=== PATIENT | female | born 1950 | race Caucasian/White ===

== ENCOUNTER 2016-09-27 16:02 | Observation (INO) ==
[2016-09-27 18:23] LABS: Basophils # 0.1 K/mcL (0.0-0.2); Basophils % 0.8 %; Eosinophils # 0.2 K/mcL (0.0-0.6); Eosinophils % 3.1 %; Hemoglobin 14.5 g/dL (11.5-15.4); Immature Granulocytes % 0.5 % (0-4); Immature Platelets 1.8 % (1.1-6.1); Lymphocytes # 2.3 K/mcL (0.6-4.6); Lymphocytes % 30.6 %; Mean Corpuscular HGB Conc 32.2 g/dL (31.6-35.5); Mean Corpuscular Hemoglobin 30.3 pg (28.0-33.3); Mean Corpuscular Volume 94.1 fL (83.0-100.0); Mean Platelet Volume 8.8 fL (9.4-12.4); Monocytes # 0.7 K/mcL (0.0-1.3); Monocytes % 9.5 %; Neutrophils # 4.1 K/mcL (1.6-8.9); Platelet Count 248 K/mcL (140-400); Red Blood Count 4.78 M/mcL (3.82-4.97); Red Cell Distribution Width 12.7 % (11.5-14.5); Segmented Neutrophils % 55.5 %
[2016-09-27 18:37] LABS: Alanine Aminotransferase 29 Units/L (0-55); Albumin 3.9 g/dL (3.5-5.0); Albumin/Globulin Ratio 1.1 (1.1-2.2); Alkaline Phosphatase 89 Units/L (38-126); Aspartate Amino Transferase 24 Units/L (5-34); BUN/Creatinine Ratio 15 (6-26); Bilirubin,Total 0.1 mg/dL (0.2-1.2); Blood Urea Nitrogen 13 mg/dL (7-20); Calcium 9.8 mg/dL (8.6-10.8); Carbon Dioxide 29 mEq/L (19-29); Chloride 102 mEq/L (98-109); Globulin 3.4 g/dL (2.4-3.5); Glucose 103 mg/dL (70-99); Osmolality,Calculated 286 (280-300); Potassium 4.2 mEq/L (3.5-4.5); Sodium 138 mEq/L (136-145); Total Protein 7.3 g/dL (6.0-8.3); eGFR For African Americans > 60 (> 60); eGFR For Non-African Americans > 60 (> 60)
[2016-09-27] MEDS ORDERED: Ipratropium/Albuterol Neb 3 ML IH ONE (18:48)
--- NOTE | 2016-09-27 18:59 | Emergency Department Note ---
Disposition Clinical Impression: Acute exacerbation of chronic obstructive airways disease Chest pain Qualifiers: Chest pain type: unspecified Qualified Code(s): R07.9 - Chest pain, unspecified Disposition: Admitted As Inpatient Condition: Good Time of Disposition: 21:56 SOB HPI - General Chief Complaint: ED Chest Pain Stated Complaint: FELICITY. Cough, CP Time Seen by Provider: 09/27/16 18:15 Source: patient Mode of arrival: ambulatory Limitations: no limitations Nursing Notes Reviewed: Yes Vital Signs Reviewed: Yes - History of Present Illness Patient is 65-year-old female who presents to ED with 1 week of shortness of breath that is progressively gotten worse. She states that she has used her nebulizer Proair and Simbicort with minimal relief. Patient states that she also has some pain between her shoulder blades she states that this began yesterday and is intermittent. She describes this pain as tearing and coughing seems to make it worse and is better when she is sitting down.. It radiates to the front. Patient states that she has had similar symptoms a few months ago for which she was admitted to the hospital and treated for bronchitis. She states that she has had a cough during this time as well that is nonproductive. She states that she feels that she has a bunch of mucus that is in her upper chest but cannot bring it up. Pt Subjective Complaint: shortness of breath Onset (ago): day(s) Severity: moderate Consistency/Duration: intermittent - Related Data Home Medications Medication Instructions Recorded Confirmed Aspirin [Adult Low Dose Aspirin EC] 81 mg PO DAILY 05/27/15 05/27/15 Clobetasol Propionate 0.05% 0.05 applic SQ DAILY 05/27/15 05/27/15 [Temovate] Clobetasol Propionate [Clobex] 118 ml TP DAILY PRN 05/27/15 05/27/15 Estrogens, Conjugated [Premarin] 0.625 mg VG 2XW 05/27/15 05/27/15 Metoprolol [Lopressor] 25 mg PO BID 05/27/15 05/27/15 Nitroglycerin [Nitrostat] 0.4 mg SL Q2-5MIN PRN 05/27/15 05/27/15 OxyCODONE/APAP 10/325 [Percocet 1 each PO Q8HR PRN 05/27/15 05/27/15 10/325 MG] Simvastatin [Zocor] 20 mg PO HS 05/27/15 05/27/15 Tolterodine LA (24 HR) [Detrol LA] 4 mg PO DAILY 05/27/15 05/27/15 Valsartan/Hydrochlorothiazide 25 - 320 mg PO DAILY 05/27/15 05/27/15 [Diovan Hct 160-25 mg Tablet] amLODIPine [Norvasc] 2.5 mg PO DAILY 05/27/15 05/27/15 diazePAM [Valium] 10 mg PO TID 05/27/15 05/27/15 Previous Rx's Medication Instructions Recorded Ciprofloxacin HCl [Cipro] 500 mg PO BID #14 tab 09/02/15 Fluconazole [Diflucan] 200 mg PO DAILY 1 Days 09/02/15 Lidocaine Jelly 2% 5 ml TP TID #100 jel..ml. 09/02/15 Phenazopyridine HCl [Pyridium] 200 mg PO TIDAC #6 tab 09/02/15 Promethazine/Codeine 5 ml PO Q6HR PRN #100 ml 09/25/15 [Phenergan/Codeine] Allergies Allergy/AdvReac Type Severity Reaction Status Date / Time codeine AdvReac Nausea Verified 09/27/16 16:09 prednisone AdvReac See Verified 09/27/16 16:09 Comments All systems ED: reviewed and negative except as stated. Constitutional: Reports: night sweats Cardiovascular: Reports: chest pain, orthopnea Respiratory: Reports: as per HPI, cough, dyspnea Gastrointestinal: Denies: abdominal pain, nausea Musculoskeletal: Reports: back pain Endocrine: Reports: fatigue Past Medical History - Past Medical History Attestation: Yes The following information was validated with the patient. 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 Absent: respiratory distress - Cardiovascular Cardiovascular exam: Present: regular rate, normal rhythm, +S1, +S2 - Abdominal Exam Abdominal exam: Present: soft, Non-Tender, normal bowel sounds - Expanded Lower Extremity Exam Lower leg exam: Present: normal inspection. Absent: tenderness, swelling - Neurological Exam Neurological exam: Present: alert, oriented X3 - Psychiatric Psychiatric exam: Present: normal affect, normal mood - Skin Skin exam: Present: warm, dry, intact Course - Reevaluation(s) Reevaluation #1: 65-year-old female with chest pain workup troponin, CBC, EKG, d-dimer Vital Signs Temperature 98.3 F 09/27/16 16:11 Pulse Rate 86 09/27/16 16:11 Respiratory Rate 24 09/27/16 16:11 Blood Pressure 112/83 09/27/16 16:11 O2 Sat by Pulse Oximetry 97 09/27/16 16:11 Temperature 98.3 F 09/27/16 16:11 Pulse Rate 86 09/27/16 16:11 Respiratory Rate 14 09/27/16 18:57 Blood Pressure 112/83 09/27/16 16:11 O2 Sat by Pulse Oximetry 99 09/27/16 18:57 Oxygen Delivery Oxygen Delivery Room Air Shortness of Breath/Dyspnea - [facility] Narrative Medical decision making narrative: Patient 65 year old female that presents to the ED with shortness of breath for the past week and progressively getting worse without relief from home medication. She has also had back anus been radiating between her shoulders forward patient seems to be hemodynamically stable pain has been intermittent. The patient was given duo nebs in the ER and symptoms have improved but due to the patient's previous cardiac history and risk factors I have decided to admit this patient and have spoke with the hospitalist Dr Mccarty and he has accepted the patient. We also got a d-dimer to evaluate for pulmonary embolism. The d-dimer came back at 384 which is within normal range. Therefore I feel that this is an exacerbation of her COPD and wanted to also rule out any cardiac event so we will admit the patient. - Differential Diagnosis Likely: acute exacerbation of chronic obstructive airways disease - Medical Records Medical records reviewed: Yes I reviewed the patient's medical records. - Lab Data Lab results reviewed: Yes I reviewed the patient's lab results. Result diagrams: 09/27/16 18:04 09/27/16 18:04 Lab Results 09/27/16 09/27/16 09/27/16 Range/Units 18:04 18:04 18:04 WBC 7.4 (4.3-11.1) K/mcL RBC 4.78 (3.82-4.97) M/mcL Hgb 14.5 (11.5-15.4) g/dL Hct 45.0 H (35.3-44.9) % MCV 94.1 (83.0-100.0) fL MCH 30.3 (28.0-33.3) pg MCHC 32.2 (31.6-35.5) g/dL RDW 12.7 (11.5-14.5) % Plt Count 248 (140-400) K/mcL MPV 8.8 L (9.4-12.4) fL Immature Gran % 0.5 (0-4) % Seg Neutrophils % 55.5 % Lymphocytes % 30.6 % Monocytes % 9.5 % Eosinophils % 3.1 % Basophils % 0.8 % Neutrophils # 4.1 (1.6-8.9) K/mcL Lymphocytes # 2.3 (0.6-4.6) K/mcL Monocytes # 0.7 (0.0-1.3) K/mcL Eosinophils # 0.2 (0.0-0.6) K/mcL Basophils # 0.1 (0.0-0.2) K/mcL Immature Plt Fraction 1.8 (1.1-6.1) % D-Dimer (0-500) ng/mLFEU Sodium 138 (136-145) mEq/L Potassium 4.2 (3.5-4.5) mEq/L Chloride 102 (98-109) mEq/L Carbon Dioxide 29 (19-29) mEq/L BUN 13 (7-20) mg/dL Creatinine 0.88 (0.57-1.11) mg/dL Est GFR ( Amer) > 60 (> 60) Est GFR (Non-Af Amer) > 60 (> 60) BUN/Creatinine Ratio 15 (6-26) Glucose 103 H (70-99) mg/dL Calculated Osmolality 286 (280-300) Calcium 9.8 (8.6-10.8) mg/dL Total Bilirubin 0.1 L (0.2-1.2) mg/dL AST 24 (5-34) Units/L ALT 29 (0-55) Units/L Alkaline Phosphatase 89 (38-126) Units/L Troponin I 0.00 (0-0.03) ng/mL B-Natriuretic Peptide (0-100) pg/mL Serum Total Protein 7.3 (6.0-8.3) g/dL Albumin 3.9 (3.5-5.0) g/dL Globulin 3.4 (2.4-3.5) g/dL Albumin/Globulin Ratio 1.1 (1.1-2.2) Urine Color (Yellow) Urine Clarity (Clear) Urine pH (5.0-8.0) pH Units Ur Specific [place] (1.010-1.025) Urine Protein (Neg-Trace) mg/dL Urine Glucose (UA) (Normal) mg/dL Urine Ketones (Negative) mg/dL Urine Blood (Negative) Urine Nitrite (Negative) Urine Bilirubin (Negative) Urine Urobilinogen (Normal) mg/dL Ur Leukocyte Esterase (Negative) Ur Culture Indicated? (NO) 09/27/16 09/27/16 09/27/16 Range/Units 18:04 18:04 19:48 WBC (4.3-11.1) K/mcL RBC (3.82-4.97) M/mcL Hgb (11.5-15.4) g/dL Hct (35.3-44.9) % MCV (83.0-100.0) fL MCH (28.0-33.3) pg MCHC (31.6-35.5) g/dL RDW (11.5-14.5) % Plt Count (140-400) K/mcL MPV (9.4-12.4) fL Immature Gran % (0-4) % Seg Neutrophils % % Lymphocytes % % Monocytes % % Eosinophils % % Basophils % % Neutrophils # (1.6-8.9) K/mcL Lymphocytes # (0.6-4.6) K/mcL Monocytes # (0.0-1.3) K/mcL Eosinophils # (0.0-0.6) K/mcL Basophils # (0.0-0.2) K/mcL Immature Plt Fraction (1.1-6.1) % D-Dimer 384 (0-500) ng/mLFEU Sodium (136-145) mEq/L Potassium (3.5-4.5) mEq/L Chloride (98-109) mEq/L Carbon Dioxide (19-29) mEq/L BUN (7-20) mg/dL Creatinine (0.57-1.11) mg/dL Est GFR ( Amer) (> 60) Est GFR (Non-Af Amer) (> 60) BUN/Creatinine Ratio (6-26) Glucose (70-99) mg/dL Calculated Osmolality (280-300) Calcium (8.6-10.8) mg/dL Total Bilirubin (0.2-1.2) mg/dL AST (5-34) Units/L ALT (0-55) Units/L Alkaline Phosphatase (38-126) Units/L Troponin I (0-0.03) ng/mL B-Natriuretic Peptide 41 (0-100) pg/mL Serum Total Protein (6.0-8.3) g/dL Albumin (3.5-5.0) g/dL Globulin (2.4-3.5) g/dL Albumin/Globulin Ratio (1.1-2.2) Urine Color Yellow (Yellow) Urine Clarity Clear (Clear) Urine pH 7.0 (5.0-8.0) pH Units Ur Specific [place] 1.008 L (1.010-1.025) Urine Protein Negative (Neg-Trace) mg/dL Urine Glucose (UA) Normal (Normal) mg/dL Urine Ketones Negative (Negative) mg/dL Urine Blood Negative (Negative) Urine Nitrite Negative (Negative) Urine Bilirubin Negative (Negative) Urine Urobilinogen Normal (Normal) mg/dL Ur Leukocyte Esterase Negative (Negative) Ur Culture Indicated? NO (NO) - Radiology Data Radiology results reviewed: Yes I reviewed the patient's radiology results. - EKG Data EKG attestation: Yes I reviewed and interpreted this EKG. EKG shows normal: Reports: sinus rhythm (Rate 82, normal intervals and QRS duration. No acute ischemic changes. Nonspecific janie-lateral T-wave flattening.) When compared to previous EKG there are: no significant changes (On 06/30/14) Attestation Statement - Attestation Attestation: I examined this patient and my medical decision-making was reviewed with the Resident Physician. I agree with the documented findings, disposition and treatment plan as described except to the extent set forth below. Fairly anxious pt w CC of SOB. Has mild bibasilar crackles but SOB is out of proportion to pulmonary exam. Intrascapular pain that radiates to substernal area. No other co-existing pain/neurological sx to suggest dissection, BP normal /mildly elevated. Clinical suspicion for PE is low, not PERC neg d/t age, low- risk by [place]. D-dimer is appropriate. Some concern for ischemia, suspicion moderate. Has h/o CAD, never stented. Inpatient evaluation warranted. HEART score 5 prior to troponin result.
[2016-09-27 20:21] LABS: Bilirubin,Urine Negative (Negative); Blood,Urine Negative (Negative); Clarity,Urine Clear (Clear); Color,Urine Yellow (Yellow); Glucose,Urine (UA) Normal (Normal); Ketones,Urine Negative (Negative); Leukocyte Esterase,Urine Negative (Negative); Nitrite,Urine Negative (Negative); Protein,Urine Negative (Neg-Trace); Specific Gravity,Urine 1.008 (1.010-1.025); Urobilinogen,Urine Normal (Normal)
--- NOTE | 2016-09-28 02:21 | Internal Med History&Physical ---
Addendum entered and electronically signed by Paul Cool DO 09/28 02:38: EKG reviewed and unchanged from previous EKG. No acute or concerning findings at this time. Original Note: Date of Encounter: 09/28/16 Time of Encounter: 02:17 Assessment and Plan (1) Acute exacerbation of chronic obstructive airways disease Current visit: Yes Status: Acute 65-year-old female with known asthma-COPD overlap syndrome admitting inpatient unit after she presented with dyspnea and a cough nonproductive. Chest x-ray did not demonstrate any acute abnormalities, laboratory results including CBC and CMP are without abnormal findings troponin X1 0.00, d-dimer 385. - Patient also has a history of panic disorder. - Physical examination performed on the floor does not demonstrate any wheezing , breath sounds are clear to auscultation bilaterally, no stridor. Patient speaking in full sentences without interruption. -Dyspnea may be related to panic attack but cannot rule out COPD exacerbation as she is received a DuoNeb in the emergency department prior to this evaluation. Plan: - Hold steroids as patient has an allergy to prednisone, at this time does not appear to the wheezing. - Duonebs and albuterol nebulizer when necessary - Continue home inhalers - By mouth azithromycin 250 mg daily (2) CAD (coronary artery disease) Current visit: Yes Status: Acute Patient has a history of coronary artery disease, cardiac catheterization in May 2015 demonstrated mild 3 vessel disease for which medical management was recommended. Plan: - Continue patient's home dose of aspirin 81 mg, beta bashir Qualifiers: Qualified Code(s): I25.10 - Atherosclerotic heart disease of jena coronary artery without angina pectoris (3) Back pain Current visit: Yes Status: Acute Patient presented with back pain associated with heavy coughing. Currently asymptomatic, troponins negative Plan: - Continue to monitor symptoms - Tramadol when necessary for pain Qualifiers: Qualified Code(s): M54.9 - Dorsalgia, unspecified (4) Panic disorder Current visit: Yes Status: Acute Patient is a known panic disorder, symptoms described correlate with panic attack. Cannot rule out COPD exacerbation at this time. - Continue patient's Valium home dose when necessary (5) DVT prophylaxis Current visit: Yes Status: Acute Lovenox 40 mg daily Internal Medicine - H&P: HPI Chief complaint: Shortness of breath History of present illness: Ms. Stoll is a 65 year old female with PMH asthma/COPD mixed disorder, coronary artery disease, fibromyalgia, panic disorder, hypertension was admitted to general medical floor after she presented to the emergency department with dyspnea and back pain. Mrs. Stoll says that her symptoms started roughly one week ago while she was shopping in [place] and while walking around she felt that if someone was choking her and she became very short of breath, her symptoms were relieved with using her inhalers. She said in the last week she has had 3-4 episodes per day where she becomes very short of breath with minimal ambulation for example going from the couch to the mailbox or the couch to the kitchen. She will have to stop and use her inhalers to catch her breath. She has had a cough but it has been nonproductive. She has had night sweats but no fevers or chills. During our conversation she is able to speak in full sentences without interrupting to breathe. She denies any current chest pain but says her back pain was exacerbated and brought on by deep coughing. At rest she does not have her pain. She describes the pain as sharp and going from her back to the front of her chest. She had another episode today for which she became worried and was unsure if she was having an asthma attack or something cardiac. She wishes to be seen in the emergency department with her concerns. Past Med Surg Social Fam HX - Past Medical History Medical history: arthritis, COPD, fibromyalgia, GERD, hyperlipidemia, hypertension, TIA, other Psychiatric history: anxiety, panic disorder - Past Surgical History Surgical History: herniorrhaphy, hysterectomy - Social History Smoking Status: Never smoker Smokeless Tobacco Status: No Alcohol use: none Drug use: none - Family History Father Hx Family Cardiac Disorders: Yes Hx Family Neurologic Disorders: Yes (alzheimers) Mother Living Status: Hx Family Cancer: Yes (liver) Internal Medicine - H&P: Meds Aspirin [Adult Low Dose Aspirin EC] 81 mg PO DAILY 05/27/15 [History] Clobetasol Propionate 0.05% [Temovate] 1 appl SQ BID 05/27/15 [History] Metoprolol [Lopressor] 25 mg PO BID 05/27/15 [History] Nitroglycerin [Nitrostat] 0.4 mg SL Q5M PRN 03/09/16 [History] OxyCODONE/APAP 10/325 [Percocet 10/325 MG] 2 each PO Q8HR PRN 05/27/15 [History] Simvastatin [Zocor] 20 mg PO HS 05/27/15 [History] amLODIPine [Norvasc] 2.5 mg PO DAILY 05/27/15 [History] diazePAM [Valium] 10 mg PO TID PRN 05/27/15 [History] Albuterol Sulfate [Proair Hfa] 2 puff IH Q4H PRN 09/27/16 [History] Betamethasone Dipropionate 1 appl TP BID 09/27/16 [History] Budesonide/Formoterol 160/4.5 [Symbicort 160/4.5] 2 puff IH BIDR 09/27/16 [ History] Ipratropium/Albuterol Neb [Duoneb] 3 ml IH Q6HR PRN 09/27/16 [History] Lidocaine Jelly 2% 1 appl TP TID PRN 09/27/16 [History] Loratadine [Claritin] 10 mg PO DAILY 09/27/16 [History] Montelukast [Singulair] 10 mg PO HS 09/27/16 [History] Oxybutynin Chloride [Ditropan Xl] 10 mg PO DAILY 09/27/16 [History] Valsartan/Hydrochlorothiazide [Diovan Hct 320-25 mg Tablet] 1 each PO DAILY 02/03 [History] Allergies codeine Adverse Reaction (Verified 09/27/16 16:09) Nausea prednisone Adverse Reaction (Verified 09/27/16 16:09) See Comments patient states swelling, weight gain, sob All Systems PM: A 10-system review of systems was performed and is negative for pertinent findings except as documented above in the HPI. - Constitutional Constitutional: night sweats, no chills, no fever(s) - EENT Eyes: no change in vision, no discharge, no pain, no photophobia Ears: no ear discharge, no ear pain, no tinnitus Nose, mouth and throat: no dysphagia, no nasal discharge, no neck pain, no sore throat - Cardiovascular Cardiovascular ROS IM: dyspnea, no chest pain, no diaphoresis, no lightheadedness, no palpitations, no syncope - Respiratory Respiratory: cough, dyspnea, pain with cough (Back pain), no wheezing, no chest congestion, no excessive phlegm production - Gastrointestinal Gastrointestinal: no abdominal pain, no diarrhea, no hematemesis, no hematochezia, no melena, no nausea, no vomiting - Genitourinary Genitourinary: no change in urinary stream, no dysuria, no flank pain, no hematuria - Musculoskeletal Musculoskeletal ROS IM: no numbness, no tingling - Integumentary Integumentary IM: no rash, no unusual bruising - Neurological Neurological ROS: no confusion, no convulsions, no focal weakness, no numbness, no tingling, no tremor(s) - Hematologic/Lymphatic Hematologic/Lymphatic: no easy bruising - Constitutional Vitals: Temp Pulse Resp BP Pulse Ox 98.1 F 85 18 93/58 95 09/27/16 23:46 09/27/16 23:46 09/27/16 23:46 09/27/16 23:46 09/27/16 23:46 Exam: General: Patient alert, awake, oriented 3, interactive, in no acute distress HEENT: Normocephalic, atraumatic, pupils equal reactive to light, nasal cavity patent and open septum median position, oral mucosa moist, uvula midline, neck supple trachea midline no palpable lymphadenopathy, no thyromegaly. Chest: Symmetric bilateral correlating with respiratory effort, effort nonlabored. Cardiac: Regular rate and rhythm, positive S1 and S2. no bruits appreciated bilateral carotids, Radial pulses 2+ bilateral, posterior tibial and dorsal pedal pulses 2+ bilateral. Respiratory: Clear to auscultation all lung [place] Abdomen: Soft, nontender, positive bowel sounds, no palpable masses appreciated on examination Extremities: Symmetric bilateral, bilateral lower extremities without erythema or edema patient moving all 4 extremities spontaneously. Neurologic: No focal deficits appreciated on examination. Face symmetric, muscle strength symmetric bilateral upper and lower extremities. Internal Med - H&P Results - Labs CBC & Chem 7: 09/27/16 18:04 09/27/16 18:04
[2016-09-28] MEDS ORDERED: Naloxone 0.4 MG/ML INJ IVP PRN (02:37)
[2016-09-28] MEDS ORDERED: Ondansetron ODT 4 MG TAB.RAPDIS SL PRN (02:37)
[2016-09-28] MEDS ORDERED: diazePAM 10 MG TABLET PO PRN (02:39)
[2016-09-28] MEDS ORDERED: Lidocaine Jelly 2% 30 ML JEL..ML. TP PRN (02:39)
[2016-09-28] MEDS ORDERED: Albuterol 2.5 MG/3 ML NEBULIZER IH PRN (02:41)
[2016-09-28] MEDS: Ipratropium/Albuterol Neb 3 ML IH SCH ×6 (04:07→23:12)
[2016-09-28] MEDS: Acetaminophen 325 MG TABLET PO PRN ×3 (04:58→20:27)
[2016-09-28] MEDS: *HR* Enoxaparin 40 MG/0.4 ML SYRINGE SQ SCH (04:58)
[2016-09-28 05:27] LABS: Basophils # 0.1 K/mcL (0.0-0.2); Basophils % 0.8 %; Eosinophils # 0.2 K/mcL (0.0-0.6); Eosinophils % 3.1 %; Hematocrit 40.8 % (35.3-44.9); Hemoglobin 13.2 g/dL (11.5-15.4); Immature Granulocytes % 0.3 % (0-4); Lymphocytes # 2.1 K/mcL (0.6-4.6); Lymphocytes % 33.9 %; Mean Corpuscular HGB Conc 32.4 g/dL (31.6-35.5); Mean Corpuscular Hemoglobin 30.1 pg (28.0-33.3); Mean Corpuscular Volume 93.2 fL (83.0-100.0); Monocytes # 0.6 K/mcL (0.0-1.3); Monocytes % 10.1 %; Neutrophils # 3.2 K/mcL (1.6-8.9); Platelet Count 201 K/mcL (140-400); Red Blood Count 4.38 M/mcL (3.82-4.97); Red Cell Distribution Width 12.7 % (11.5-14.5); Segmented Neutrophils % 51.8 %
[2016-09-28 05:37] LABS: BUN/Creatinine Ratio 12 (6-26); Blood Urea Nitrogen 11 mg/dL (7-20); Calcium 9.4 mg/dL (8.6-10.8); Carbon Dioxide 28 mEq/L (19-29); Chloride 102 mEq/L (98-109); Chol/HDL Ratio 6.1 (0-4.9); Cholesterol 178 mg/dL (< 200); Glucose 99 mg/dL (70-99); HDL Cholesterol 29 mg/dL (40-59); Magnesium 2.1 mg/dL (1.6-2.6); Osmolality,Calculated 283 (280-300); Potassium 3.8 mEq/L (3.5-4.5); Sodium 137 mEq/L (136-145); Triglycerides 406 mg/dL (< 150); eGFR For African Americans > 60 (> 60); eGFR For Non-African Americans > 60 (> 60)
[2016-09-28] MEDS ORDERED: Benzonatate 100 MG CAPSULE PO PRN ×2 (05:49→06:23)
[2016-09-28] MEDS: Budesonide/Formoterol 160/4.5 MDI IH SCH ×2 (08:10→20:09)
[2016-09-28] MEDS ORDERED: amLODIPine 5 MG TABLET PO SCH (09:00)
[2016-09-28] MEDS ORDERED: Valsartan 160 MG TABLET PO SCH (09:00)
[2016-09-28] MEDS ORDERED: hydroCHLOROthiazide 25 MG TABLET PO SCH (09:00)
[2016-09-28] MEDS ORDERED: BETAMETHASONE DIPROPIONATE TP SCH (09:00)
[2016-09-28] MEDS: Azithromycin 250 MG TABLET PO SCH (09:14)
[2016-09-28] MEDS: CLOBETASOL PROPIONATE 15 GM TUBE TP SCH ×2 (09:15→20:27)
[2016-09-28] MEDS: Aspirin Enteric Coated 81 MG Tablet PO SCH (09:15)
[2016-09-28] MEDS ORDERED: MethylPREDNISolone 40 MG/ML VIAL IVP SCH (09:17)
--- NOTE | 2016-09-28 10:09 | Electrocardiograph Report ---
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
[2016-09-28] MEDS: Furosemide 20 MG/2 ML VIAL IVP SCH (17:09)
--- NOTE | 2016-09-28 19:24 | Event Note ---
Date of Encounter: 09/28/16 Time of Encounter: 14:00 Patient admitted with shortness of breath and cough. Chest aggression active process. She does not use oxygen at home and is now requiring 2 L of oxygen via nasal cannula. Patient reports her symptoms are already improving. Physical examination reveals lungs are clear to auscultation and heart rate is regular. There is concern for COPD exacerbation versus acute heart failure exacerbation. Echocardiogram pending. We will continue duo nebs and azithromycin. We will stop blood pressure medication due to low normal blood pressure. Patient with history of panic attacks.
[2016-09-29] MEDS: Ipratropium/Albuterol Neb 3 ML IH SCH ×3 (04:46→11:17)
[2016-09-29] MEDS: *HR* Enoxaparin 40 MG/0.4 ML SYRINGE SQ SCH (06:12)
[2016-09-29 06:14] LABS: Basophils % 0.7 %; Eosinophils # 0.2 K/mcL (0.0-0.6); Eosinophils % 3.7 %; Hematocrit 40.5 % (35.3-44.9); Hemoglobin 13.4 g/dL (11.5-15.4); Immature Granulocytes % 0.5 % (0-4); Mean Corpuscular HGB Conc 33.1 g/dL (31.6-35.5); Mean Corpuscular Volume 93.8 fL (83.0-100.0); Monocytes # 0.5 K/mcL (0.0-1.3); Monocytes % 9.1 %; Platelet Count 199 K/mcL (140-400); Red Blood Count 4.32 M/mcL (3.82-4.97); Red Cell Distribution Width 12.8 % (11.5-14.5)
[2016-09-29 06:59] LABS: BUN/Creatinine Ratio 16 (6-26); Blood Urea Nitrogen 15 mg/dL (7-20); Calcium 9.1 mg/dL (8.6-10.8); Carbon Dioxide 24 mEq/L (19-29); Chloride 103 mEq/L (98-109); Glucose 113 mg/dL (70-99); Magnesium 2.1 mg/dL (1.6-2.6); Osmolality,Calculated 284 (280-300); Potassium 3.8 mEq/L (3.5-4.5); Sodium 136 mEq/L (136-145); eGFR For African Americans > 60 (> 60); eGFR For Non-African Americans > 60 (> 60)
[2016-09-29] MEDS: Budesonide/Formoterol 160/4.5 MDI IH SCH (07:46)
[2016-09-29] MEDS: Azithromycin 250 MG TABLET PO SCH (09:42)
[2016-09-29] MEDS: Furosemide 20 MG/2 ML VIAL IVP SCH (09:42)
[2016-09-29] MEDS: Aspirin Enteric Coated 81 MG Tablet PO SCH (09:42)
[2016-09-29] MEDS: CLOBETASOL PROPIONATE 15 GM TUBE TP SCH (09:42)
--- NOTE | 2016-09-29 11:06 | Discharge Summary ---
Date of Encounter: 09/29/16 Time of Encounter: 11:02 - Discharge Diagnosis (1) Chest pain Priority: Primary Status: Resolved Qualifiers: Chest pain type: unspecified Qualified Code(s): R07.9 - Chest pain, unspecified (2) Panic disorder Priority: Primary Status: Chronic (3) CAD (coronary artery disease) Priority: Secondary Status: Chronic Qualifiers: Coronary Disease-Associated Artery/Lesion type: [place] artery [place] vs. transplanted heart: [place] heart Associated angina: without angina Qualified Code(s): I25.10 - Atherosclerotic heart disease of [place] coronary artery without angina pectoris - Discharge Medications Home Medications: Aspirin [Adult Low Dose Aspirin EC] 81 mg PO DAILY 05/27/15 [History] Clobetasol Propionate 0.05% [Temovate] 1 appl SQ BID 05/27/15 [History] Metoprolol [Lopressor] 25 mg PO BID 05/27/15 [History] Nitroglycerin [Nitrostat] 0.4 mg SL Q5M PRN 05/27/15 [History] OxyCODONE/APAP 10/325 [Percocet 10/325 MG] 2 each PO Q8HR PRN 05/27/15 [History] Simvastatin [Zocor] 20 mg PO HS 05/27/15 [History] diazePAM [Valium] 10 mg PO TID PRN 05/27/15 [History] Albuterol Sulfate [Proair Hfa] 2 puff IH Q4H PRN 09/27/16 [History] Betamethasone Dipropionate 1 appl TP BID 09/27/16 [History] Budesonide/Formoterol 160/4.5 [Symbicort 160/4.5] 2 puff IH BIDR 09/27/16 [ History] Lidocaine Jelly 2% 1 appl TP TID PRN 09/27/16 [History] Loratadine [Claritin] 10 mg PO DAILY 09/27/16 [History] Montelukast [Singulair] 10 mg PO HS 09/27/16 [History] Oxybutynin Chloride [Ditropan Xl] 10 mg PO DAILY 09/27/16 [History] Ipratropium/Albuterol Neb [Duoneb] 3 ml IH Q6HR #0 09/29/16 [Rx] Allergies/Adverse Reactions: Allergies codeine Adverse Reaction (Verified 09/27/16 16:09) Nausea prednisone Adverse Reaction (Verified 09/27/16 16:09) See Comments patient states swelling, weight gain, sob Procedures/tests Complete & Pending: Procedures Performed prior 72 hours Category Date Time Status EV echocardiogram Routine Y 09/28/16 07:28 Completed Date of admission: 09/27/16 22:01 Primary care physician: Reuben Delaney - Patient Status Disposition: Home, Self-Care Condition: Good Functional capacity at discharge: independent ambulation Overall status at discharge: patient is progressing back to baseline - Discharge Instructions Instructions: Chest Pain (DC), Chronic Obstructive Pulmonary Disease (DC) Follow Up With: Paul Conrad DO [Primary Care Provider] - 10/05/16 11:30 am (This appointment with with Sarah Guerrero CNP) - Diet and Activity Activity: resume usual activities as tolerated Diet: low fat, low cholesterol, low salt diet Interval History: Patient denies any chest pain or shortness of breath. She is eager to go home. Hospital course: Ms. Stoll is a 65 year old female with past medical history of COPD, CAD, panic disorder and hypertension who presented with a chief complaint of shortness of breath. She does not use oxygen at home and is now requiring 2 L of oxygen via nasal cannula. Physical examination was unremarkable. Echocardiogram showed mild diastolic dysfunction. Her symptoms resolved and she remained hemodynamically stable during the hospitalization. Chest impression acute process. Her blood pressure medications were adjusted. Likely shortness of breath is secondary to panic attack. Plan: Follow with primary care physician early next week. I explained to the patient all her findings, diagnosis and treatment. she verbalized understanding and agreed with the plan. - Time Spent with Patient Total time spent providing and/or coordinating discharge services: - Constitutional Vitals: Temp Pulse Resp BP Pulse Ox 97.4 F L 97 16 113/76 95 09/29/16 07:35 09/29/16 07:35 09/29/16 07:47 09/29/16 07:35 09/29/16 07:47 General appearance: Present: cooperative, pleasant, no acute distress, answers questions appropriately - Neck Neck exam general surgery: Present: supple, trachea midline. Absent: lymphadenopathy - Respiratory Respiratory exam: Present: CTAB - Cardiovascular Cardiovascular exam: Present: RRR - GI/Abdominal GI/Abdominal exam: Present: normal bowel sounds, soft. Absent: distended, tenderness - Extremities Exam Extremities exam: Absent: pedal edema - Back Exam Back exam: Absent: CVA tenderness (L), CVA tenderness (R) - Skin Skin exam: Absent: rash
[2016-09-29 12:07] VITALS: BP 120/77
== END 2016-09-29 12:14 | disposition home or self-care (01) ==
LOC: EMEROO 16:02 → 3BNU 16:02 → SUATTDRO 22:01 → 3BNU 23:14
PROVIDERS: ADMIT Pediatrics; ATTEND Internal Medicine